=== PATIENT | female | born 1970 | race Caucasian/White ===

== ENCOUNTER → 2017-08-03 | Outpatient (CLI) | payer OTHER ==
[2017-08-03 13:40] LABS: HEMOGLOBIN 11.5 gm/dl (12.3-15.3); RED BLOOD COUNT 4.56 M/UL (4.00-5.10); WHITE BLOOD COUNT 8.9 K/UL (4.5-11.0)
[2017-08-03 13:57] LABS: BUN/CREATININE RATIO 16 (0-10)
== END ==
LOC: OPSV 12:00
PROVIDERS: Internal Medicine Infectious Disease
DX: E11.42 Type 2 diabetes mellitus with diabetic polyneuropathy (principal); L02.211 Cutaneous abscess of abdominal wall; L03.311 Cellulitis of abdominal wall; B95.2 Enterococcus as the cause of diseases classified elsewhere; E87.6 Hypokalemia; D72.823 Leukemoid reaction; I10 Essential (primary) hypertension; F17.210 Nicotine dependence, cigarettes, uncomplicated; E66.09 Other obesity due to excess calories; D63.8 Anemia in other chronic diseases classified elsewhere; B96.89 Other specified bacterial agents as the cause of diseases classified elsewhere; K65.1 Peritoneal abscess; T85.79XD Infection and inflammatory reaction due to other internal prosthetic devices, implants and grafts, subsequent encounter; Z16.21 Resistance to vancomycin
CPT/HCPCS: 36592; 80053; 82550; 85025; 86140; G0463

== ENCOUNTER 2021-04-16 13:42 | Inpatient (IN) | payer MEDICARE, OTHER ==
[~2021-04-16] VITALS: Ht 185.4 cm; Wt 104.3 kg
[~2021-04-16 13:42] MED LIST: AUGMENTIN 875-1 EACH PO; IBUPROFEN800 MG PO; MEDROL4 MG PO
[2021-04-16 15:00] LABS: HEMOGLOBIN 13.4 gm/dl (12.3-15.3); RED BLOOD COUNT 4.89 M/UL (4.00-5.10); WHITE BLOOD COUNT 12.9 K/UL (4.5-11.0)
[2021-04-16 15:16] LABS: BUN/CREATININE RATIO 16 (0-10)
[2021-04-16] MEDS ORDERED: VITAMIN B12-FO1 EACH PO (19:36)
[2021-04-16] MEDS ORDERED: NEURONTIN400 MG PO (19:47)
[2021-04-16] MEDS ORDERED: ASPIRIN CHEWABL81 MG PO (19:47)
[2021-04-16] MEDS ORDERED: JANUMET 50-1,01 EACH PO (19:47)
[2021-04-16] MEDS ORDERED: CYMBALTA60 MG PO (19:47)
[2021-04-16] MEDS ORDERED: COZAAR100 MG PO (19:50)
[2021-04-16] MEDS ORDERED: LEVOTHYROXINE50 MC1 PO (19:50)
[2021-04-16] MEDS ORDERED: JARDIANCE25 MG PO (19:50)
[2021-04-16] MEDS ORDERED: HUMALOG100 UNIT/2 SQ (19:51)
[2021-04-16] MEDS ORDERED: LOPRESSOR50 MG PO (19:51)
[2021-04-16] MEDS ORDERED: PLAVIX75 MG PO (19:51)
[2021-04-16] MEDS ORDERED: TOUJEO MAX300 UNIT/1 SQ (19:52)
[2021-04-17 03:41] LABS: HEMOGLOBIN 11.5 gm/dl (12.3-15.3); RED BLOOD COUNT 4.41 M/UL (4.00-5.10); WHITE BLOOD COUNT 13.1 K/UL (4.5-11.0)
[2021-04-17 03:54] LABS: BUN/CREATININE RATIO 20 (0-10)
[2021-04-18 03:04] LABS: HEMOGLOBIN 11.7 gm/dl (12.3-15.3); RED BLOOD COUNT 4.39 M/UL (4.00-5.10)
[2021-04-18 03:10] LABS: WHITE BLOOD COUNT 8.6 K/UL (4.5-11.0)
[2021-04-18 03:34] LABS: BUN/CREATININE RATIO 13 (0-10)
[2021-04-18] MEDS ORDERED: AUGMENTIN 875-1 EACH PO (10:27)
[2021-04-18] MEDS ORDERED: FLAGYL500 MG PO (10:27)
== END 2021-04-18 12:43 | disposition home or self-care (01) | DRG 392 ==
LOC: ER1 13:42 → CDU 18:15 → M/S 18:15
PROVIDERS: Physician Assistant; ADMIT Internal Medicine
DX: K52.9 Noninfective gastroenteritis and colitis, unspecified (principal); I10 Essential (primary) hypertension; E11.9 Type 2 diabetes mellitus without complications; F17.210 Nicotine dependence, cigarettes, uncomplicated; Z20.822 Contact with and (suspected) exposure to COVID-19; K46.9 Unspecified abdominal hernia without obstruction or gangrene; F32.9 Major depressive disorder, single episode, unspecified; N20.0 Calculus of kidney; K59.00 Constipation, unspecified; Z85.038 Personal history of other malignant neoplasm of large intestine; Z86.73 Personal history of transient ischemic attack (TIA), and cerebral infarction without residual deficits; Z90.49 Acquired absence of other specified parts of digestive tract; Z79.4 Long term (current) use of insulin; Z90.710 Acquired absence of both cervix and uterus; Z88.5 Allergy status to narcotic agent; Z88.6 Allergy status to analgesic agent
CPT/HCPCS: 36415; 80053; 81001; 82962; 83605; 83690; 84439; 84443; 85025; 86140; 87040; 96374; 99285; C9113; J1335; J7030; Q9967; U0002

== ENCOUNTER 2021-09-02 07:50 | Emergency (ER) | payer MEDICARE, OTHER ==
[~2021-09-02 07:50] MED LIST changes: +ASPIRIN CHEWABL81 MG PO; +COZAAR100 MG PO; +CYMBALTA60 MG PO; +FLAGYL500 MG PO; +HUMALOG100 UNIT/2 SQ; +JANUMET 50-1,01 EACH PO; +JARDIANCE25 MG PO; +LEVOTHYROXINE50 MC1 PO; +LOPRESSOR50 MG PO; +NEURONTIN400 MG PO; +PLAVIX75 MG PO; +TOUJEO MAX300 UNIT/1 SQ; +VITAMIN B12-FO1 EACH PO
[2021-09-02 08:39] LABS: HEMOGLOBIN 14.1 gm/dl (12.3-15.3); RED BLOOD COUNT 4.99 M/UL (4.00-5.10)
[2021-09-02 09:03] LABS: BUN/CREATININE RATIO 19 (0-10)
[2021-09-02] MEDS ORDERED: CYCLOBENZAPRINE10 MG PO (10:53)
[2021-09-02] MEDS ORDERED: MEDROL DOSEPAK 24 MG PO (10:53)
== END 2021-09-02 12:50 | disposition home or self-care (01) ==
LOC: ER1 07:50
PROVIDERS: Physician Assistant
DX: M54.42 Lumbago with sciatica, left side (principal); E11.9 Type 2 diabetes mellitus without complications; I10 Essential (primary) hypertension; F17.200 Nicotine dependence, unspecified, uncomplicated; Z88.5 Allergy status to narcotic agent; Z88.6 Allergy status to analgesic agent; Z88.8 Allergy status to other drugs, medicaments and biological substances
CPT/HCPCS: 80053; 81001; 85025; 96372; 96374; 96375; 99284; J1100; J1885; J2270; J2550

== ENCOUNTER → 2021-12-22 | Outpatient (CLI) | payer MEDICARE, OTHER ==
[~2021-12-22] MED LIST changes: +CYCLOBENZAPRINE10 MG PO; +CYCLOBENZAPRINE5 MG PO; +MEDROL DOSEPAK 24 MG PO; +VITAMIN D21250 MCG PO
[2021-12-22 11:14] LABS: HEMOGLOBIN 15.3 gm/dl (12.3-15.3); RED BLOOD COUNT 5.08 M/UL (4.00-5.10); WHITE BLOOD COUNT 8.6 K/UL (4.5-11.0)
[2021-12-22 11:37] LABS: BUN/CREATININE RATIO 18 (0-10)
== END ==
LOC: OPSV2 10:00
PROVIDERS: Orthopaedic Surgery
DX: Z01.818 Encounter for other preprocedural examination (principal); G56.01 Carpal tunnel syndrome, right upper limb
CPT/HCPCS: 36415; 80048; 85025; 93005

== ENCOUNTER → 2021-12-29 | Day surgery (SDC) | payer MEDICARE, OTHER ==
[~2021-12-29] VITALS: Ht 185.4 cm; Wt 116.6 kg
[~2021-12-29] MED LIST changes: +HYDROCODON-ACE1 EAC2 PO
== END | disposition home or self-care (01) ==
LOC: OR 05:42
DX: G56.01 Carpal tunnel syndrome, right upper limb (principal); I10 Essential (primary) hypertension; E11.9 Type 2 diabetes mellitus without complications; E03.9 Hypothyroidism, unspecified; Z86.73 Personal history of transient ischemic attack (TIA), and cerebral infarction without residual deficits; F41.9 Anxiety disorder, unspecified; F32.A Depression, unspecified; E55.9 Vitamin D deficiency, unspecified; Z90.710 Acquired absence of both cervix and uterus; Z88.1 Allergy status to other antibiotic agents; Z88.5 Allergy status to narcotic agent; Z88.8 Allergy status to other drugs, medicaments and biological substances; Z79.82 Long term (current) use of aspirin; Z79.4 Long term (current) use of insulin; Z79.01 Long term (current) use of anticoagulants; Z79.899 Other long term (current) drug therapy
CPT/HCPCS: 82962; J0690; J1100; J1885; J2001; J2250; J2405; J2550; J2704; J3010; J7030; J7120